=== PATIENT | male | born 1945 | race Caucasian/White ===

== ENCOUNTER 2016-12-13 11:29 | Observation (INO) | payer OTHER ==
[~2016-12-13] VITALS: Ht 172.7 cm; Wt 87.7 kg
[~2016-12-13 11:29] MED LIST: ASPIR 8181 M1 PO; ATORVASTATIN CA20 MG PO; Bactrim,Septra DS 80 PO; CELECOXIB200 MG PO; COZAAR25 MG PO; DAILY MULTIPLE1 EACH PO; DESYREL100 MG PO; DOXYCYCLINE HY100 M3 PO; DOXYCYCLINE HY100 MG PO; Effexor PO; Feosol PO; IRON325 M1 PO; LOSARTAN POTASS25 MG PO; LYRICA75 MG PO; Lipitor PO; Minipress PO; NEXIUM40 MG PO; OXYCODONE HCL5 MG PO; PERCOCET 5/31 TABLET PO; Percocet 5/325,Endoc PO; SOMA250 MG PO; TRAZODONE HCL100 MG PO; VENLAFAXINE225 MG PO; VITAMIN D31000 UNIT PO; XARELTO10 MG PO
[2016-12-13 13:01] LABS: HEMATOCRIT 40.9 % (38.0-50.0); MCH 29.8 PG (29.0-34.0); MCV 87.6 FL (86-99); MEAN PLAT.VOLUME 10.9 uM^3 (9.0-12.4); PLATELET COUNT 208 K/uL (156-360); RBC DIS.WIDTH-CV 12.5 % (11.8-14.6); RED BLOOD COUNT 4.67 M/uL (4.00-5.50); WHITE BLOOD COUNT 7.5 K/uL (4.1-10.2)
[2016-12-13 13:17] LABS: CHLORIDE 104 mEq/L (99-109); POTASSIUM 4.5 mEq/L (3.7-5.4); SODIUM 140 mEq/L (136-147)
[2016-12-13 13:19] LABS: GLUCOSE 95 mg/dL (70-99)
[2016-12-13 13:20] LABS: ANION GAP 12 MEQ/L (2-14)
[2016-12-13 13:23] LABS: GFR ESTIMATE (CALCULATED) > 59 mL/min/
[2016-12-13 13:24] LABS: UREA NITROGEN (BUN) 16 mg/dL (9-23)
[2016-12-13 13:31] LABS: TROP-I INTERPRETATION NEGATIVE; TROPONIN-I 0.04 ng/mL (0.0-0.30)
[2016-12-13] MEDS ORDERED: ROXICODONE5 MG PO (14:07)
[2016-12-13] MEDS ORDERED: LYRICA150 MG PO (14:08)
[2016-12-13] MEDS ORDERED: LO-DOSE ASPIRIN81 M2 PO (14:09)
[2016-12-13] MEDS ORDERED: GARLIC1000 MG PO (14:09)
[2016-12-13] MEDS ORDERED: REFRESH EYE DR1 EACH BOTH EYES (14:10)
[2016-12-13 14:55] VITALS: BP 169/75
[2016-12-13] MEDS ORDERED: VENLAFAXINE HCL75 M3 PO (16:16)
[2016-12-13 17:10] LABS: TROP-I INTERPRETATION NEGATIVE; TROPONIN-I 0.04 ng/mL (0.0-0.30)
[2016-12-13 20:08] VITALS: BP 138/84
[2016-12-13 20:56] LABS: TROP-I INTERPRETATION NEGATIVE; TROPONIN-I 0.02 ng/mL (0.0-0.30)
[2016-12-14 00:10] VITALS: BP 128/79
[2016-12-14 03:21] VITALS: BP 120/67
[2016-12-14 08:14] VITALS: BP 123/71
== END 2016-12-14 11:08 | disposition home or self-care (01) ==
LOC: EME 11:29 → EDOF 13:57 → 5WEST 13:57 → EDOF 13:57 → 5WEST 14:44
PROVIDERS: Emergency Medicine; Hospitalist
DX: R07.89 Other chest pain (principal); I10 Essential (primary) hypertension; E78.2 Mixed hyperlipidemia; F43.10 Post-traumatic stress disorder, unspecified; M19.90 Unspecified osteoarthritis, unspecified site; F32.9 Major depressive disorder, single episode, unspecified; Z85.46 Personal history of malignant neoplasm of prostate; Z96.642 Presence of left artificial hip joint; Z87.891 Personal history of nicotine dependence; Z82.49 Family history of ischemic heart disease and other diseases of the circulatory system
CPT/HCPCS: 71020; 80048; 84484; 85027; 93005; 99281; 99285; G0378; J1650

== ENCOUNTER 2016-12-20 07:37 | Day surgery (SDC) | payer OTHER ==
[~2016-12-20] VITALS: Ht 172.7 cm; Wt 86.2 kg
[~2016-12-20 07:37] MED LIST changes: +GARLIC1000 MG PO; +LO-DOSE ASPIRIN81 M2 PO; +LYRICA150 MG PO; +REFRESH EYE DR1 EACH BOTH EYES; +ROXICODONE5 MG PO; +VENLAFAXINE HCL75 M3 PO
== END 2016-12-20 15:02 | disposition short-term general hospital (02) ==
LOC: CATH 07:37
DX: I25.10 Atherosclerotic heart disease of native coronary artery without angina pectoris (principal); I25.84 Coronary atherosclerosis due to calcified coronary lesion; I10 Essential (primary) hypertension; E78.2 Mixed hyperlipidemia; Z87.891 Personal history of nicotine dependence; R01.1 Cardiac murmur, unspecified; Z82.49 Family history of ischemic heart disease and other diseases of the circulatory system; Z79.82 Long term (current) use of aspirin
CPT/HCPCS: 85027; 85730; C1769; C1887; J1644; J2250; J3010

== ENCOUNTER 2017-07-03 21:20 | Inpatient (IN) | payer OTHER ==
[~2017-07-03] VITALS: Ht 172.7 cm; Wt 85.9 kg
[~2017-07-03 21:20] MED LIST changes: -ATORVASTATIN CA20 MG PO; +LIPITOR40 MG PO; +LOPRESSOR25 MG PO; +OXYCODONE HCL10 MG PO; -ROXICODONE5 MG PO
[2017-07-04 07:12] VITALS: BP 124/67
[2017-07-04 12:11] LABS: HEMATOCRIT 36.6 % (38.0-50.0); MCV 88.8 FL (86-99)
[2017-07-04 12:15] VITALS: BP 128/58
[2017-07-04 16:00] VITALS: BP 127/60
[2017-07-04 18:00] VITALS: BP 125/58
[2017-07-04 20:49] VITALS: BP 130/60
[2017-07-05 00:13] VITALS: BP 132/71
[2017-07-05 04:16] VITALS: BP 124/69
[2017-07-05 06:58] LABS: HEMATOCRIT 37.5 % (38.0-50.0); MCV 86.8 FL (86-99)
[2017-07-05 07:30] LABS: ANION GAP 9 MEQ/L (2-14); CHLORIDE 100 MEQ/L (99-109); GFR ESTIMATE (CALCULATED) > 59 mL/min/ (58.99-99999); GLUCOSE 105 mg/dL (70-99); POTASSIUM 4.4 MEQ/L (3.7-5.4); SAMPLE HEMOLYSIS CHECK 0; SAMPLE ICTERIC CHECK 0; SAMPLE LIPEMIA CHECK 0; SODIUM 139 MEQ/L (136-147); UREA NITROGEN (BUN) 11 mg/dL (9-23)
[2017-07-05 08:00] VITALS: BP 132/65
[2017-07-05] MEDS ORDERED: BENADRYL25 MG PO (09:25)
[2017-07-05] MEDS ORDERED: BISACODYL5 MG PO (09:28)
[2017-07-05] MEDS ORDERED: TYLENOL REGULA325 MG PO (09:28)
[2017-07-05] MEDS ORDERED: CELECOXIB200 MG PO (09:30)
[2017-07-05] MEDS ORDERED: ELIQUIS2.5 MG PO (09:30)
[2017-07-05] MEDS ORDERED: OXYCODONE HCL5 MG PO (09:30)
[2017-07-05 12:00] VITALS: BP 144/65
== END 2017-07-05 13:55 | disposition home health service (06) | DRG 470 ==
LOC: ENRESERV 21:20 → 2SOUTH 07-04 06:10 → 3WEST 07-04 12:05 → 2SOUTH 07-04 15:06 → 3WEST 07-05 13:55
PROVIDERS: Orthopaedic Surgery
PROC: 0SR904A Replacement of Right Hip Joint with Ceramic on Polyethylene Synthetic Substitute, Uncemented, Open Approach (ICD-10-PCS; principal; 2017-07-04)
DX: M16.11 Unilateral primary osteoarthritis, right hip (principal); M87.051 Idiopathic aseptic necrosis of right femur; I10 Essential (primary) hypertension; I25.10 Atherosclerotic heart disease of native coronary artery without angina pectoris; E78.2 Mixed hyperlipidemia; I35.9 Nonrheumatic aortic valve disorder, unspecified; K21.9 Gastro-esophageal reflux disease without esophagitis; F32.9 Major depressive disorder, single episode, unspecified; F41.9 Anxiety disorder, unspecified; Z96.642 Presence of left artificial hip joint; Z95.1 Presence of aortocoronary bypass graft; Z98.1 Arthrodesis status; Z79.82 Long term (current) use of aspirin; Z85.46 Personal history of malignant neoplasm of prostate; Z22.322 Carrier or suspected carrier of Methicillin resistant Staphylococcus aureus; Z82.49 Family history of ischemic heart disease and other diseases of the circulatory system
CPT/HCPCS: 73501; 80048; 85014; 85018; 97530 GP; J0131; J0690; J1100; J2250; J2405; J3370; J7050; J7120